=== PATIENT | male | born 1960 | race Caucasian/White ===

== ENCOUNTER 2022-10-16 13:09 | Outpatient (CLI) | payer OTHER, SELFPAY ==
--- NOTE | 2022-10-16 13:17 | CRLHL7_ITS ---
For Patients: As a result of the Century Cures Act, medical imaging exams and procedure reports are released immediately into your electronic medical record. You may view this report before your referring provider. If you have questions, please contact your health care provider. Indication: Crohn`s disease of small intestine with intestinal obstruction Technique: Postcontrast CT abdomen and pelvis. 98 cc Isovue 370 intravenous contrast. Oral VoLumen administered. Please note that all CT scans at this facility use dose modulation, iterative reconstruction, and/or weight-based dosing when appropriate to reduce radiation dose to as low as reasonably achievable. Comparison: 02/01/2020 Findings: Lung bases are clear. Diffuse low attenuation of the hepatic parenchyma. Spleen normal. Adrenal glands unremarkable. No hydronephrosis or solid renal mass. Pancreas normal. Gallbladder unremarkable. Atherosclerotic disease. No aneurysm. Prostate mildly prominent. Mild mass effect upon the bladder. There is mild segmental narrowing of the proximal transverse colon extending over a length of 3 cm, series 2, image 68. Postop changes of right hemicolectomy. No free air, free fluid or abscess. The small bowel loops appear normal. No evidence of small-bowel obstruction. There are scattered subcentimeter lymph nodes within the central mesenteric fat, as before. Similar appearance of the distal colon with lack of haustral markings and persistent narrowing of the sigmoid colon extending over a length of 1.6 cm, series 2, image 117. No evidence of fistula. Severe degenerative joint disease of both hips with extensive hypertrophic spur formation. No compression fracture. Impression: Postoperative changes of partial colonic resection. No bowel obstruction Chronic mild short-segment stricture at the sigmoid colon. Segmental narrowing of the proximal transverse colon measuring 3 cm. This may represent an additional postinflammatory stricture. Correlation with colonoscopy suggested. Numerous subcentimeter retroperitoneal and mesenteric lymph nodes are similar likely reflective of chronic mild inflammation. Diffuse hepatic steatosis. Please note that all CT scans at this facility use dose modulation, iterative reconstruction, and/or weight-based dosing when appropriate to reduce radiation dose to as low as reasonably achievable. Dictated by Sonido Rojo MD @ 10/17/2022 11:24:00 AM (Electronically Signed)
== END 2022-10-16 13:10 | disposition home or self-care (01) ==
LOC: CT 13:11
DX: K50.912 Crohn's disease, unspecified, with intestinal obstruction (principal); K76.0 Fatty (change of) liver, not elsewhere classified
CPT/HCPCS: 74177; Q9967